=== PATIENT | male | born 1965 | race Caucasian/White ===

== ENCOUNTER → 2018-03-04 | Outpatient (CLI) | payer BC ==
[2018-02-04 01:45] VITALS: BP 143/85
[~2018-03-04] MED LIST: FAMO20TA5 PO; REGADENOSON 0.4 MG/5 ML DISP.SYRIN. IV ONE
--- NOTE | 2018-03-04 11:52 | RAD ---
MR#: [id number] Date of Study: 03/04/2018 Ordering Physician: SID ACEVES, Referring Physician: GOPAL MONTIEL Tech: RT Meseret (R) (N) APPROVED REPORT Test Type: Pharmacological Stress Nurse/Tech: Annia Petit R.N. Test Indications: chest pain Cardiac History: Family history, Diabetes, Hypertension, former smoker Medications: See Electronic Medical Record Medical History: See Electronic Medical Record Resting ECG: NSR Resting Heart Rate: 65 bpm Resting Blood Pressure: 117/68mmHg Pretest Chest Pain: No chest pain Nurse/Tech Notes S1S2, lungs sound clear Consent: The procedure was explained to the patient in lay terms. Informed consent was witnessed. Baldev eout was entered into [employer]. History and Stress Test performed by Annia Petit R.N. Pharm. Details Pharmacologic stress testing was performed using 0.4mg per 5ml of regadenoson given intravenously ove r 7-10 seconds. Stress Symptoms No chest pain or symptoms. POST EXERCISE Reason for Termination: Infusion complete Max HR: 85 bpm Max Blood Pressure: 120/65mmHg Blood Pressure response to exercise: Normal blood pressure response during stress. Chest Pain: No. Arrhythmia: No. ST Change: No. INTERPRETATION Stress EKG Conclusion: No acute changes. Imaging Protocol IMAGE PROTOCOL: Rest Tc-99m/stress Tc-99m 1 day Rest: Stress: Viability: Radiopharm.Tc99m [id number] Sestamibi Dose11.2mCi 32mCi Duration 13min. 13min. Img Date 03/04/2018 03/04/2018 Inj-Img [id number]. 60min. Rest Admin Site:IV - Right HandAdministrator:RT Meseret (R)(N) Stress Admin Site: IV - Right HandAdministrator: STEPHANIE Rodriguez, ARRT (R)(N) STRESS DATA End Diast. Vol.101.0mlLVEDV index BSA46.0ml End Syst. Vol.26.0mlLVESV index BSA12.0ml Myocardial Toxt376.0gEject. Mxhgsygc75.0% Stress Scores Regional WT0.00Summed WT0.00 Regional WM0.00Summed WM3.00 The rest and stress images show normal perfusion, normal contraction and thickening. LV Perf. Quant 17 Seg. SSS0.00 17 Seg. SRS2.00 17 Seg. SDS0.00 Stress Defect Extent (% LAD)0.00Rest Defect Extent (% LAD)0.00Rev. Defect Extent (% LAD)0.00 Stress Defect Extent (% LCX) 0.00Rest Defect Extent (% LCX)0.00Rev. Defect Extent (% LCX)0.00 Stress Defect Extent (% RCA)0.00Rest Defect Extent (% RCA)20.00Rev. Defect Extent (% RCA)0.00 Stress Defect Extent (% DAYAN)0.00Rest Defect Extent (% DAYAN)4.80Rev. Defect Extent (% DAYAN)0.00 Other Information Quality:Good Risk Assessment: Low Risk Conclusion 1. No evidence of EKG changes with stress testing. 2. Normal perfusion at stress/rest. 3. Low risk study. 4. EF > 60%. Signed by : Cal Francis, Electronically Approved : 03/04/2018 11:51:23
== END | disposition home or self-care (01) ==
LOC: NM 07:42
PROVIDERS: ATTEND Internal Medicine Cardiovascular Disease
DX: R07.89 Other chest pain (principal); I10 Essential (primary) hypertension; E11.9 Type 2 diabetes mellitus without complications; Z87.891 Personal history of nicotine dependence; Z82.49 Family history of ischemic heart disease and other diseases of the circulatory system; Z83.3 Family history of diabetes mellitus
CPT/HCPCS: 78452; 93017; 96374; 96375; 96376; A9500; J2785

== ENCOUNTER 2019-07-05 05:10 | Emergency (ER) | payer BC ==
[~2019-07-05] VITALS: Ht 177.8 cm; Wt 90.7 kg
[~2019-07-05 05:10] MED LIST changes: -REGADENOSON 0.4 MG/5 ML DISP.SYRIN. IV ONE
[2019-07-05] MEDS ORDERED: IV NORMAL SALINE 1000ML BAG 1,000 ML IV SCH ×2 (06:00→07:00)
[2019-07-05 06:27] LABS: CALCIUM 9.2 mg/dL (8.5-10.1); CREATININE 0.9 mg/dL (0.7-1.3); GFR 88.6; POTASSIUM 4.1 mmol/L (3.5-5.1)
[2019-07-05 06:32] LABS: ALBUMIN 4.4 g/dL (3.4-5.0); ALBUMIN/GLOBULIN RATIO 1.5 (1.0-1.7); TOTAL BILIRUBIN 0.9 mg/dL (0.2-1.0); TOTAL PROTEIN 7.4 g/dL (6.4-8.2)
--- NOTE | 2019-07-05 06:48 | PHYS DOC ---
Past Medical History Past Medical History: Diabetes-Type II, Hypertension Past Surgical History: No Surgical History Smoking Status: Never Smoker Alcohol Use: None Drug Use: None Social History Narrative: CHEWS Adult General Chief Complaint Chief Complaint: DIARRHEA HPI HPI Patient is a 53 year old male with history of hypertension and diabetes mellitus who presents with complaint of not feeling good and diarrhea. Patient complaining of 3-4 episodes of nonbloody diarrhea since yesterday afternoon with nausea and he states he does not feel good and feels weak. Patient complaining of mild cough without shortness of breath, fever and chills, abdominal pain, sick contact, urinary symptoms, chest pain and focal neuro deficit. Review of Systems Review of Systems Constitutional: Denies fever or chills [] Eyes: Denies change in visual acuity, redness, or eye pain [] HENT: Denies nasal congestion or sore throat [] Respiratory: Denies cough or shortness of breath [] Cardiovascular: No additional information not addressed in HPI [] GI: Denies abdominal pain, vomiting, bloody stools, reports nausea and diarrhea [] : Denies dysuria or hematuria [] Musculoskeletal: Denies back pain or joint pain [] Integument: Denies rash or skin lesions [] Neurologic: Denies headache, focal weakness or sensory changes [] Endocrine: Denies polyuria or polydipsia [] All other systems were reviewed and found to be within normal limits, except as documented in this note. Current Medications Current Medications Current Medications Medications (Trade) Dose Ordered Sig/Makenna Start Time Stop Time Status Last Admin Dose Admin Ondansetron HCl (Zofran) 4 mg 1X ONCE 07/05/19 07:00 07/05/19 07:01 DC 07/05/19 07:29 4 MG Sodium Chloride 1,000 ml @ 1,000 mls/hr Q1H 07/05/19 07:00 07/05/19 07:59 DC 07/05/19 07:29 1,000 MLS/HR Allergies Allergies Allergies Coded Allergies Type Severity Reaction Last Updated Verified No Known Drug Allergies 03/03/18 No Physical Exam Physical Exam Constitutional: Well developed, well nourished, mild distress, non-toxic appearance. [] HENT: Normocephalic, atraumatic, oral mucosa dry. Eyes: PERRLA, EOMI, conjunctiva normal, no discharge. [] Neck: Normal range of motion, no tenderness, supple, no stridor. [] Cardiovascular:Heart rate regular rhythm, no murmur [] Lungs & Thorax: Bilateral breath sounds clear to auscultation [] Abdomen: Bowel sounds normal, soft, no tenderness, no masses, no pulsatile masses. [] Skin: Warm, dry, no erythema, no rash. [] Back: No tenderness, no CVA tenderness. [] Extremities: No tenderness, no cyanosis, no clubbing, ROM intact, no edema. [] Neurologic: Alert and oriented X 3, no focal deficits noted. [] Psychologic: Affect anxious, judgement normal, mood normal. [] Current Patient Data Vital Signs Vital Signs Date Time Temp Pulse Resp B/P (MAP) Pulse Ox O2 Delivery O2 Flow Rate FiO2 07/05/19 09:00 58 18 131/67 (88) 97 Room Air 07/05/19 05:24 97.4 97.4 Lab Values Laboratory Tests Test 07/05/19 05:30 07/05/19 06:00 07/05/19 08:25 White Blood Count 6.9 x10^3/uL (4.0-11.0) Red Blood Count 5.32 x10^6/uL (4.30-5.70) Hemoglobin 16.4 g/dL (13.0-17.5) Hematocrit 47.3 % (39.0-53.0) Mean Corpuscular Volume 89 fL (79-100) Mean Corpuscular Hemoglobin 31 pg (25-35) Mean Corpuscular Hemoglobin Concent 35 g/dL (31-37) Red Cell Distribution Width 13.0 % (11.5-14.5) Platelet Count 308 x10^3/uL (140-400) Neutrophils (%) (Auto) 54 % (31-73) Lymphocytes (%) (Auto) 34 % (24-48) Monocytes (%) (Auto) 8 % (0-9) Eosinophils (%) (Auto) 4 % (0-3) H Basophils (%) (Auto) 0 % (0-3) Neutrophils # (Auto) 3.7 x10^3/uL (1.8-7.7) Lymphocytes # (Auto) 2.3 x10^3/uL (1.0-4.8) Monocytes # (Auto) 0.6 x10^3/uL (0.0-1.1) Eosinophils # (Auto) 0.3 x10^3/uL (0.0-0.7) Basophils # (Auto) 0.0 x10^3/uL (0.0-0.2) Sodium Level 142 mmol/L (136-145) Potassium Level 4.1 mmol/L (3.5-5.1) Chloride Level 103 mmol/L (98-107) Carbon Dioxide Level 29 mmol/L (21-32) Anion Gap 10 (6-14) Blood Urea Nitrogen 10 mg/dL (8-26) Creatinine 0.9 mg/dL (0.7-1.3) Estimated GFR (Cockcroft-Gault) 88.6 BUN/Creatinine Ratio 11 (6-20) Glucose Level 120 mg/dL (70-99) H Calcium Level 9.2 mg/dL (8.5-10.1) Total Bilirubin 0.9 mg/dL (0.2-1.0) Aspartate Amino Transferase (AST) 27 U/L (15-37) Alanine Aminotransferase (ALT) 50 U/L (16-63) Alkaline Phosphatase 83 U/L (46-116) Total Protein 7.4 g/dL (6.4-8.2) Albumin 4.4 g/dL (3.4-5.0) Albumin/Globulin Ratio 1.5 (1.0-1.7) Lipase 138 U/L (73-393) Lactic Acid Level 1.3 mmol/L (0.4-2.0) Urine Collection Type Void Urine Color Yellow Urine Clarity Clear Urine pH 5.5 (<5.0-8.0) Urine Specific [place] 1.020 (1.000-1.030) Urine Protein Negative mg/dL (NEG-TRACE) Urine Glucose (UA) Negative mg/dL (NEG) Urine Ketones (Stick) Negative mg/dL (NEG) Urine Blood Negative (NEG) Urine Nitrite Negative (NEG) Urine Bilirubin Negative (NEG) Urine Urobilinogen Dipstick 1.0 mg/dL (0.2 mg/dL) Urine Leukocyte Esterase Negative (NEG) Urine RBC 0 /HPF (0-2) Urine WBC 1-4 /HPF (0-4) Urine Squamous Epithelial Cells Few /LPF Urine Bacteria 0 /HPF (0-FEW) Urine Hyaline Casts Few /HPF Urine Mucus Marked /LPF Laboratory Tests 07/05/19 05:30 Laboratory Tests 07/05/19 05:30 EKG EKG [] Radiology/Procedures Radiology/Procedures [] Course & Med Decision Making Course & Med Decision Making Pertinent Labs reviewed. (See chart for details) Evaluation of patient in ER showed 53-year-old male patient with complaining of 3-4 episodes of diarrhea since yesterday without vomiting. Patient had unremarkable physical exam and lab and treated with IV fluids and felt better. I've spoken with the patient and/or caregivers. I've explained the patient's condition, diagnosis and treatment plan based on information available to me at this time. I've answered the patient's and/or caregivers questions and addressed any concerns. The patient and/or caregivers have a good understanding the patient's diagnosis, condition and treatment plan as can be expected at this point. Vital signs have been stabilized. The patient's condition is stable for discharge from the emergency department. The patient will pursue further outpatient evaluation with her primary care provider or other designated consulting physician as outlined in the discharge instructions. Patient and/or caregivers are agreeable to this plan of care and follow-up instructions have been explained in detail. The patient and/or caregivers have received these instructions in written format and expressed understanding of these discharge instructions. The patient and her caregivers are aware that if any significant change in condition or worsening of symptoms should prompt him to immediately return to this of the closest emergency department. If an emergent department is not readily available I would encourage him to call 911. [place] Disclaimer Dragon Disclaimer This electronic medical record was generated, in whole or in part, using a voice recognition dictation system. Departure Departure Impression: Primary Impression: Acute gastroenteritis Additional Impression: History of diabetes mellitus Disposition: HOME, SELF-CARE Condition: IMPROVED Referrals: GIAN MEYERS (PCP) Patient Instructions: Diet for Diarrhea, Adult, Viral Gastroenteritis Additional Instructions: Drink plenty of liquids Follow-up with your primary care physician in 3-5 days Return to ER if not getting better Thank you for visiting [facility]. We appreciate you trusting us with your care. If any additional problems come up don't hesitate to return to visit us. Please follow up with your primary care provider so they can plan additional care if needed and know about the problem that you had. If symptoms worsen come back to the Emergency Department. Any concerning symptoms that start such as chest pain, shortness of air, weakness or numbness on one side of the body, running high fevers or any other concerning symptoms return to the ER. Scripts Ondansetron Hcl (ZOFRAN) 4 Mg Tablet 1 TAB PO PRN Q6-8HRS for nausea, #12 TAB Prov: BERNICE RAPP MD 07/05/19 Problem Qualifiers BERNICE RAPP MD Jul 05, 2019 06:48
[2019-07-05 07:00] LABS: BASO % 0 % (0-3); EOS # 0.3 x10^3/uL (0.0-0.7); EOS % 4 % (0-3); HEMATOCRIT 47.3 % (39.0-53.0); HEMOGLOBIN 16.4 g/dL (13.0-17.5); LYMPH # 2.3 x10^3/uL (1.0-4.8); LYMPH % 34 % (24-48); MEAN CORPUSCULAR HEMOGLOBIN 31 pg (25-35); MEAN CORPUSCULAR HGB CONC 35 g/dL (31-37); MEAN CORPUSCULAR VOLUME 89 fL (79-100); MONO # 0.6 x10^3/uL (0.0-1.1); MONO % 8 % (0-9); NEUT # 3.7 x10^3/uL (1.8-7.7); NEUT % 54 % (31-73); PLATELET COUNT 308 x10^3/uL (140-400); RED BLOOD COUNT 5.32 x10^6/uL (4.30-5.70); WHITE BLOOD COUNT 6.9 x10^3/uL (4.0-11.0)
[2019-07-05] MEDS ORDERED: ONDANSETRON PF 4 MG/2 ML VIAL. IVP ONE (07:00)
[2019-07-05] MEDS ORDERED: ONDA4TAB7 PO (08:01)
[2019-07-05 08:37] LABS: BILIRUBIN,URINE NEGATIVE (NEG); CLARITY,URINE CLEAR; COLOR,URINE YELLOW; NITRITE,URINE NEGATIVE (NEG); PH,URINE 5.5 (<5.0-8.0); PROTEIN,URINE NEGATIVE (NEG-TRACE)
[2019-07-05 08:51] LABS: BACTERIA,URINE 0 /HPF (0-FEW); HYALINE CASTS, URINE FEW /HPF; RBC,URINE 0 /HPF (0-2); SQUAMOUS EPITHELIAL CELL,UR FEW /LPF
[2019-07-05 09:00] VITALS: BP 131/67
== END 2019-07-05 09:29 | disposition home or self-care (01) ==
LOC: ER 05:10
DX: K52.9 Noninfective gastroenteritis and colitis, unspecified (principal); R11.0 Nausea; R05 Cough; E11.9 Type 2 diabetes mellitus without complications; I10 Essential (primary) hypertension
CPT/HCPCS: 36415; 80053; 81001; 83605; 83690; 85025; 96361; 96374; 99283; J2405; J7030

== ENCOUNTER 2019-10-22 22:08 | Observation (INO) | payer BC ==
[~2019-10-22] VITALS: Ht 177.8 cm; Wt 99.1 kg
[~2019-10-22 22:08] MED LIST changes: +ONDA4TAB7 PO
[2019-10-22 22:39] LABS: BASO # 0.1 x10^3/uL (0.0-0.2); BASO % 1 % (0-3); EOS # 0.2 x10^3/uL (0.0-0.7); EOS % 2 % (0-3); HEMATOCRIT 41.9 % (39.0-53.0); HEMOGLOBIN 15.2 g/dL (13.0-17.5); LYMPH # 2.5 x10^3/uL (1.0-4.8); LYMPH % 29 % (24-48); MEAN CORPUSCULAR HEMOGLOBIN 31 pg (25-35); MEAN CORPUSCULAR HGB CONC 36 g/dL (31-37); MEAN CORPUSCULAR VOLUME 87 fL (79-100); MONO # 0.5 x10^3/uL (0.0-1.1); MONO % 6 % (0-9); NEUT # 5.5 x10^3/uL (1.8-7.7); NEUT % 62 % (31-73); PLATELET COUNT 284 x10^3/uL (140-400); RED BLOOD COUNT 4.84 x10^6/uL (4.30-5.70); WHITE BLOOD COUNT 8.8 x10^3/uL (4.0-11.0)
--- NOTE | 2019-10-22 22:41 | PHYS DOC ---
Past Medical History Past Medical History: Asthma, Diabetes-Type II, Hypertension Past Surgical History: Appendectomy, Other Additional Past Surgical Histo: L KNEE SX Smoking Status: Former Smoker Alcohol Use: Rarely Drug Use: None General Adult EDM: Chief Complaint: CHEST PAIN HPI: HPI: Patient is a 54 year old male with past medical history hypertension hyperlipidemia and diabetes presents with a chief complaint of chest pain. 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 Patient states pain was in his left chest that radiated to his left shoulder. He describes the pain as a stabbing-like pain. Patient had associated symptoms of diaphoresis and nausea. He states it lasted for about 20 minutes then resolved. Approximately 1 hour prior to arrival patient had a return of left-sided chest discomfort. Patient again described the pain as a stabbing pain and states he feels a little nauseous. Patient states pain is still present. Review of Systems: Review of Systems: Constitutional: Denies fever or chills. [] Eyes: Denies change in visual acuity. [] HENT: Denies nasal congestion or sore throat. [] Respiratory: Denies cough or shortness of breath. [] Cardiovascular: Positive chest pain GI: Denies abdominal pain, vomiting, bloody stools or diarrhea. [Positive nausea] : Denies dysuria. [] Musculoskeletal: Denies back pain or joint pain. [] Integument: Denies rash. [] Neurologic: Denies headache, focal weakness or sensory changes. [] Endocrine: Denies polyuria or polydipsia. [] Lymphatic: Denies swollen glands. [] Psychiatric: Denies depression or anxiety. [] Heart Score: HEART Score for Chest Pain: HEART Score for Chest Pain Response (Comments) Value History Moderately Suspicious 1 ECG Nonspecific Repolarizatio 1 Age >45 - < 65 1 Risk Factors >3 Risk Factors or Hx CAD 2 Troponin < Normal Limit 0 Total 5 Risk Factors: Risk Factors: DM, Current or recent (<one month) smoker, HTN, HLP, family history of CAD, obesity. Risk Scores: Score 0 - 3: 2.5% MACE over next 6 weeks - Discharge Home Score 4 - 6: 20.3% MACE over next 6 weeks - Admit for Clinical Observation Score 7 - 10: 72.7% MACE over next 6 weeks - Early Invasive Strategies Allergies: Allergies: Allergies Coded Allergies Type Severity Reaction Last Updated Verified No Known Drug Allergies 03/03/18 No Physical Exam: PE: Constitutional: Well developed, well nourished, no acute distress, non-toxic appearance. [] HENT: Normocephalic, atraumatic, bilateral external ears normal, oropharynx moist, no oral exudates, nose normal. [] Eyes: PERRLA, EOMI, conjunctiva normal, no discharge. [] Neck: Normal range of motion, no tenderness, supple, no stridor. [] Cardiovascular:Heart rate regular rhythm, no murmur [] Lungs & Thorax: Bilateral breath sounds clear to auscultation [] Abdomen: Bowel sounds normal, soft, no tenderness, no masses, no pulsatile masses. [] Skin: Warm, dry, no erythema, no rash. [] Back: No tenderness, no CVA tenderness. [] Extremities: No tenderness, no cyanosis, no clubbing, ROM intact, no edema. [] Neurologic: Alert and oriented X 3, normal motor function, normal sensory function, no focal deficits noted. [] Psychologic: Affect normal, judgement normal, mood normal. [] Current Patient Data: Vital Signs: Vital Signs Date Time Temp Pulse Resp B/P (MAP) Pulse Ox O2 Delivery O2 Flow Rate FiO2 10/22/19 22:12 97.7 69 18 168/93 (118) 96 Room Air 97.7 EKG: EKG: [] EKG time 221 heart rate [address] elevation no ST depression T wave inversion V5 V6 Radiology/Procedures: Radiology/Procedures: [] Impression: CHEST AP ONLY INDICATION: Reason: chest pain / Spl. Instructions: / History: . COMPARISON STUDY: None. FINDINGS: Lungs: Normal lung volume. No pulmonary mass or consolidation. The tracheobronchial tree and hilar structures are normal. Pleura: No pleural effusion or pneumothorax. Heart and Mediastinum: The cardiomediastinal silhouette is normal. The great vessels of the thorax are normal. IMPRESSION: No acute cardiopulmonary process. Electronically signed by: Miller Mares MD (10/22/2019 11:18 PM) [facility] Course & Med Decision Making: Course & Med Decision Making Pertinent Labs and Imaging studies reviewed. (See chart for details) []2217hrs rate [address] elevation no ST depression T wave changes V5 V6 Patient was evaluated for chief complaint. Work-up consisted of laboratory analysis radiologic imaging and EKG. Results reviewed and discussed with patient. Patient was treated with aspirin and nitro. Patient's symptoms did improve post treatment. Patient was admitted to the hospitalist for further evaluation and treatment. Dragon Disclaimer: Dragon Disclaimer: This electronic medical record was generated, in whole or in part, using a voice recognition dictation system. Departure Departure Impression: Primary Impression: Chest pain Disposition: ADMITTED INPATIENT Admitting Physician: JENNY Condition: STABLE Referrals: GIAN MEYERS (PCP) Justicifation of Admission Dx: Justifications for Admission: Justification of Admission Dx: Yes Comments: Chest Pain ETHEL NUNEZ I DO Oct 22, 2019 22:41
[2019-10-22 22:43] LABS: GFR 78.2; POTASSIUM 3.4 mmol/L (3.5-5.1)
[2019-10-22] MEDS ORDERED: NITROGLYCERIN SUBLINGUAL 0.4 MG BOTTLE OF 25. SL PRN (22:45)
[2019-10-22] MEDS ORDERED: ASPIRIN CHEWABLE 81 MG TABLET. PO ONE (22:45)
[2019-10-22 22:49] LABS: ALBUMIN/GLOBULIN RATIO 1.2 (1.0-1.7); TOTAL BILIRUBIN 0.5 mg/dL (0.2-1.0); TOTAL PROTEIN 7.3 g/dL (6.4-8.2)
[2019-10-22 22:59] LABS: PLT ESTIMATE ADEQUATE (ADEQUATE)
--- NOTE | 2019-10-22 23:20 | RAD ---
CHEST AP ONLY INDICATION: Reason: chest pain / Spl. Instructions: / History: . COMPARISON STUDY: None. FINDINGS: Lungs: Normal lung volume. No pulmonary mass or consolidation. The tracheobronchial tree and hilar structures are normal. Pleura: No pleural effusion or pneumothorax. Heart and Mediastinum: The cardiomediastinal silhouette is normal. The great vessels of the thorax are normal. IMPRESSION: No acute cardiopulmonary process. Electronically signed by: Miller Mares MD (10/22/2019 11:18 PM) [facility]
[2019-10-23] MEDS ORDERED: LISI1TAB23 PO (10:35)
[2019-10-23] MEDS ORDERED: METF500T16 PO (10:35)
[2019-10-23 10:52] LABS: BASO # 0.1 x10^3/uL (0.0-0.2); BASO % 1 % (0-3); EOS # 0.2 x10^3/uL (0.0-0.7); EOS % 3 % (0-3); HEMATOCRIT 41.7 % (39.0-53.0); HEMOGLOBIN 14.9 g/dL (13.0-17.5); LYMPH % 31 % (24-48); MEAN CORPUSCULAR HEMOGLOBIN 31 pg (25-35); MEAN CORPUSCULAR HGB CONC 36 g/dL (31-37); MEAN CORPUSCULAR VOLUME 86 fL (79-100); MONO # 0.4 x10^3/uL (0.0-1.1); MONO % 6 % (0-9); NEUT % 60 % (31-73); PLATELET COUNT 268 x10^3/uL (140-400); RED BLOOD COUNT 4.84 x10^6/uL (4.30-5.70); RED CELL DISTRIBUTION WIDTH 13.2 % (11.5-14.5); WHITE BLOOD COUNT 6.6 x10^3/uL (4.0-11.0)
[2019-10-23] MEDS ORDERED: ASPIRIN ENTERIC COATED 325 MG TABLET.DR. PO SCH (11:00)
[2019-10-23 11:13] LABS: ALBUMIN 3.9 g/dL (3.4-5.0); ALBUMIN/GLOBULIN RATIO 1.3 (1.0-1.7); CALCIUM 8.5 mg/dL (8.5-10.1); CREATININE 0.8 mg/dL (0.7-1.3); GFR 101.1; TOTAL BILIRUBIN 0.9 mg/dL (0.2-1.0); TOTAL PROTEIN 6.8 g/dL (6.4-8.2)
[2019-10-23 11:23] LABS: CHOLESTEROL/HDL RATIO 6.5
[2019-10-23] MEDS ORDERED: PANTOPRAZOLE 40 MG TABLET.DR. PO SCH (11:30)
[2019-10-23 11:49] VITALS: BP 124/65
[2019-10-23 15:00] VITALS: BP 137/76
[2019-10-23] MEDS ORDERED: ASPI325T11 PO (16:48)
[2019-10-23] MEDS ORDERED: ATOR20TA58 PO (16:48)
[2019-10-23] MEDS ORDERED: metFORMIN 500 MG TABLET PO SCH (17:00)
--- NOTE | 2019-10-23 17:45 | NUR ---
Pt discharged home with sister. Instructed to follow up with Dr Francis on outpatient and his office will call pt. Pt verbalized understanding.
--- NOTE | 2019-10-23 19:22 | PDOC ---
GENERAL General: Same day summary [id number] VITAL SIGNS Vital Signs/I&O: Vital Signs Date Time Temp Pulse Resp B/P (MAP) Pulse Ox O2 Delivery O2 Flow Rate FiO2 10/23/19 15:00 98.0 54 16 137/76 (96) 95 Room Air 98.0 ALLERGIES Allergies: Allergies Coded Allergies Type Severity Reaction Last Updated Verified No Known Drug Allergies 03/03/18 No MEDS Medications: Current Medications Medications (Trade) Dose Ordered Sig/Makenna Route PRN Reason Start Time Stop Time Status Last Admin Dose Admin Aspirin (Aspirin Chewable) 324 mg 1X ONCE PO 10/22/19 22:45 10/22/19 22:46 DC 10/22/19 22:50 Nitroglycerin (Nitrostat) 0.4 mg PRN Q5MIN PRN SL CHEST PAIN 10/22/19 22:45 10/23/19 18:14 DC 10/23/19 02:40 Aspirin (Ecotrin) 325 mg DAILYWBKFT PO 10/23/19 11:00 10/23/19 18:14 DC 10/23/19 12:33 Pantoprazole Sodium (Protonix) 40 mg BIDAC PO 10/23/19 11:30 10/23/19 18:14 DC 10/23/19 12:33 LAB Lab: Laboratory Tests Test 10/22/19 22:23 10/23/19 10:40 White Blood Count 8.8 x10^3/uL (4.0-11.0) 6.6 x10^3/uL (4.0-11.0) Red Blood Count 4.84 x10^6/uL (4.30-5.70) 4.84 x10^6/uL (4.30-5.70) Hemoglobin 15.2 g/dL (13.0-17.5) 14.9 g/dL (13.0-17.5) Hematocrit 41.9 % (39.0-53.0) 41.7 % (39.0-53.0) Mean Corpuscular Volume 87 fL (79-100) 86 fL (79-100) Mean Corpuscular Hemoglobin 31 pg (25-35) 31 pg (25-35) Mean Corpuscular Hemoglobin Concent 36 g/dL (31-37) 36 g/dL (31-37) Red Cell Distribution Width 13.0 % (11.5-14.5) 13.2 % (11.5-14.5) Platelet Count 284 x10^3/uL (140-400) 268 x10^3/uL (140-400) Neutrophils (%) (Auto) 62 % (31-73) 60 % (31-73) Lymphocytes (%) (Auto) 29 % (24-48) 31 % (24-48) Monocytes (%) (Auto) 6 % (0-9) 6 % (0-9) Eosinophils (%) (Auto) 2 % (0-3) 3 % (0-3) Basophils (%) (Auto) 1 % (0-3) 1 % (0-3) Neutrophils # (Auto) 5.5 x10^3/uL (1.8-7.7) 4.0 x10^3/uL (1.8-7.7) Lymphocytes # (Auto) 2.5 x10^3/uL (1.0-4.8) 2.0 x10^3/uL (1.0-4.8) Monocytes # (Auto) 0.5 x10^3/uL (0.0-1.1) 0.4 x10^3/uL (0.0-1.1) Eosinophils # (Auto) 0.2 x10^3/uL (0.0-0.7) 0.2 x10^3/uL (0.0-0.7) Basophils # (Auto) 0.1 x10^3/uL (0.0-0.2) 0.1 x10^3/uL (0.0-0.2) Platelet Estimate Adequate (ADEQUATE) Sodium Level 140 mmol/L (136-145) 140 mmol/L (136-145) Potassium Level 3.4 mmol/L (3.5-5.1) L 4.0 mmol/L (3.5-5.1) Chloride Level 104 mmol/L (98-107) 104 mmol/L (98-107) Carbon Dioxide Level 27 mmol/L (21-32) 26 mmol/L (21-32) Anion Gap 9 (6-14) 10 (6-14) Blood Urea Nitrogen 16 mg/dL (8-26) 16 mg/dL (8-26) Creatinine 1.0 mg/dL (0.7-1.3) 0.8 mg/dL (0.7-1.3) Estimated GFR (Cockcroft-Gault) 78.2 101.1 BUN/Creatinine Ratio 16 (6-20) 20 (6-20) Glucose Level 159 mg/dL (70-99) H 107 mg/dL (70-99) H Calcium Level 9.0 mg/dL (8.5-10.1) 8.5 mg/dL (8.5-10.1) Total Bilirubin 0.5 mg/dL (0.2-1.0) 0.9 mg/dL (0.2-1.0) Aspartate Amino Transferase (AST) 26 U/L (15-37) 28 U/L (15-37) Alanine Aminotransferase (ALT) 43 U/L (16-63) 43 U/L (16-63) Alkaline Phosphatase 78 U/L (46-116) 70 U/L (46-116) Creatine Kinase 139 U/L (39-308) Creatine Kinase MB (Mass) 1.3 ng/mL (0.0-3.6) Creatine Kinase MB Relative Index 0.9 % (0-4) Troponin I Quantitative < 0.017 ng/mL (0.000-0.055) < 0.017 ng/mL (0.000-0.055) Total Protein 7.3 g/dL (6.4-8.2) 6.8 g/dL (6.4-8.2) Albumin 4.0 g/dL (3.4-5.0) 3.9 g/dL (3.4-5.0) Albumin/Globulin Ratio 1.2 (1.0-1.7) 1.3 (1.0-1.7) Triglycerides Level 97 mg/dL (0-150) Cholesterol Level 213 mg/dL (0-200) H LDL Cholesterol, Calculated 161 mg/dL (0-100) H VLDL Cholesterol, Calculated 19 mg/dL (0-40) Non-HDL Cholesterol Calculated 180 mg/dL (0-129) H HDL Cholesterol 33 mg/dL (40-60) L Cholesterol/HDL Ratio 6.5 Laboratory Tests 10/22/19 22:23 10/23/19 10:40 Laboratory Tests 10/22/19 22:23 10/23/19 10:40 Justicifation of Admission Dx: Justifications for Admission: Justification of Admission Dx: Yes JOE HERRMANN MD Oct 23, 2019 19:22
--- NOTE | 2019-10-23 19:49 | SSS ---
ADMIT DATE: 10/23/2019 HISTORY OF PRESENT ILLNESS: This patient is a 54-year-old man who is a continuity outpatient of Dr. Albrecht at [facility]. The patient presented to the Emergency Department early this morning with sharp substernal chest pain that radiated around into his left shoulder. 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 He did not have a specific trauma, but the heavy loads have been a strain for him. The patient was concerned that he was having acute coronary syndrome and was admitted to an observation status for further evaluation and treatment. I saw him several hours ago after his Cardiology consultation in the company of his sister and he was feeling a lot better after analgesics. He was up and moving about the room and had tolerated his diet. He was cleared by Cardiology for outpatient followup. Cardiology notes are pending, but per nursing staff, he was told that likely he will need an outpatient stress test. The patient denied any shortness of air, palpitations, fever, chills, cough, congestion, nausea, vomiting, or change in his bowel habits. All other systems are reviewed and negative. PAST MEDICAL HISTORY: 1. Hypertension. 2. Diabetes that he believes has been in decent control, but he struggles with the cost of his medications at times. 3. Hyperlipidemia. MEDICATIONS: Please see the medication reconciliation form. SOCIAL HISTORY: The patient is single. He lives independently in his own home. He denies any tobacco, alcohol or illicit drugs. 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 FAMILY HISTORY: Reviewed in full and noncontributory to the present illness. PHYSICAL EXAMINATION: VITAL SIGNS: Reviewed since admission and are notable for that the patient was afebrile. Blood pressure was in the 120s to 130s/70s, heart rate is in the 40s-50s and regular. He is breathing comfortably and saturating normally on room air. GENERAL: The patient is a pleasant 54-year-old man, alert and oriented x 3, in no acute distress. HEENT: Unremarkable. NECK: Soft and supple. No adenopathy or thyromegaly noted. CHEST: Clear to auscultation. HEART: S1, S2 normal. Regular rate and rhythm. No murmurs or gallops are noted. ABDOMEN: Soft, nontender, nondistended. No masses or organomegaly noted. EXTREMITIES: Unremarkable for acute abnormality. LABORATORY DATA: Another studies reviewed and notable for a white count of 6.6, hemoglobin is 14.9, platelet count is 268. Chemistry panel is notable for a creatinine of 0.8. Electrolytes unremarkable. Liver function tests are normal. Troponin negative x 2. Fasting cholesterol demonstrates an LDL of 161. A1c was not taken. Chest x-ray is clear. EKG is not available electronically for review, but reportedly unremarkable. ASSESSMENT AND PLAN: The patient is a 54-year-old man admitted with substernal, sharp, respirophasic chest pain after a long day lifting heavy pallets at work, admitted for further evaluation and treatment. I agree with Cardiology that he was able to be discharged, which he did several hours ago. He will have close outpatient followup with primary care as well as Cardiology for further assessment. I have asked the patient to continue enteric coated aspirin as well as added atorvastatin to his regimen. He is adamant that this does not represent gastroesophageal reflux disease; however, he would benefit from short course of proton pump inhibitor to ensure that he is able to stay symptom free. He will avoid Motrin as that has exacerbated reflux in the past. Observation status is most appropriate as he was anticipated to only require one overnight stay depending on his progress. FINAL DIAGNOSES: Atypical chest pain, most likely musculoskeletal in origin. JOE HERRMANN MD DR: MELIZA/alexia JOB#: [id number] / [id number] GIAN Stewart Dr. MTDD
[2019-10-23] MEDS ORDERED: FAMOTIDINE 20 MG TABLET. PO SCH (21:00)
[2019-10-24 05:42] LABS: HEMOGLOBIN A1C 5.5 % (4.8-5.6)
--- NOTE | 2019-10-24 08:41 | PDOC2 ---
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 he reports left sided chest pain. Denies any syncope, palpitations. Pain occurred while moving heavy pallets. Since admission to hospital no recurrence. He has some typical and atypical components. PMHX: HTN DM2. DLP SOCHX: No alcohol, tob or illicits. He works at [employer]. He is worried about losing his job. He states that if he does not get back to work on friday he will lose his job. He is adamant that he does not want to stay in hospital. FAMHX: +CAD CURRENT MEDS: Current Medications Medications (Trade) Dose Ordered Sig/Makenna Route PRN Reason Start Time Stop Time Status Last Admin Dose Admin Aspirin (Ecotrin) 325 mg DAILYWBKFT PO 10/23/19 11:00 10/23/19 18:14 DC 10/23/19 12:33 Pantoprazole Sodium (Protonix) 40 mg BIDAC PO 10/23/19 11:30 10/23/19 18:14 DC 10/23/19 12:33 ALLERGIES: Allergies Coded Allergies Type Severity Reaction Last Updated Verified No Known Drug Allergies 03/03/18 No ROS: Negative for 01/25 systems reviewed PHYSICAL EXAM: Vital Signs/I&O: Vital Signs Date Time Temp Pulse Resp B/P (MAP) Pulse Ox O2 Delivery O2 Flow Rate FiO2 10/23/19 15:00 98.0 54 16 137/76 (96) 95 Room Air 98.0 Physical Exam: GEN.: No apparent distress. Alert and oriented. HEENT: Head is normocephalic, atraumatic NECK: Supple. LUNGS: Clear to auscultation. HEART: RRR, S1, S2 present. Peripheral pulses intact ABDOMEN: Soft, nontender. Positive bowel sounds. EXTREMITIES: Without any cyanosis. NEUROLOGIC: Normal speech, normal tone PSYCHIATRIC: Normal affect, normal mood. SKIN: No ulcerations DIAGNOSTIC TESTING: Lab Laboratory Tests Test 10/23/19 10:40 White Blood Count 6.6 x10^3/uL (4.0-11.0) Red Blood Count 4.84 x10^6/uL (4.30-5.70) Hemoglobin 14.9 g/dL (13.0-17.5) Hematocrit 41.7 % (39.0-53.0) Mean Corpuscular Volume 86 fL (79-100) Mean Corpuscular Hemoglobin 31 pg (25-35) Mean Corpuscular Hemoglobin Concent 36 g/dL (31-37) Red Cell Distribution Width 13.2 % (11.5-14.5) Platelet Count 268 x10^3/uL (140-400) Neutrophils (%) (Auto) 60 % (31-73) Lymphocytes (%) (Auto) 31 % (24-48) Monocytes (%) (Auto) 6 % (0-9) Eosinophils (%) (Auto) 3 % (0-3) Basophils (%) (Auto) 1 % (0-3) Neutrophils # (Auto) 4.0 x10^3/uL (1.8-7.7) Lymphocytes # (Auto) 2.0 x10^3/uL (1.0-4.8) Monocytes # (Auto) 0.4 x10^3/uL (0.0-1.1) Eosinophils # (Auto) 0.2 x10^3/uL (0.0-0.7) Basophils # (Auto) 0.1 x10^3/uL (0.0-0.2) Sodium Level 140 mmol/L (136-145) Potassium Level 4.0 mmol/L (3.5-5.1) Chloride Level 104 mmol/L (98-107) Carbon Dioxide Level 26 mmol/L (21-32) Anion Gap 10 (6-14) Blood Urea Nitrogen 16 mg/dL (8-26) Creatinine 0.8 mg/dL (0.7-1.3) Estimated GFR (Cockcroft-Gault) 101.1 BUN/Creatinine Ratio 20 (6-20) Glucose Level 107 mg/dL (70-99) H Hemoglobin A1c 5.5 % (4.8-5.6) Calcium Level 8.5 mg/dL (8.5-10.1) Total Bilirubin 0.9 mg/dL (0.2-1.0) Aspartate Amino Transf (AST/SGOT) 28 U/L (15-37) Alkaline Phosphatase 70 U/L (46-116) Total Protein 6.8 g/dL (6.4-8.2) Albumin 3.9 g/dL (3.4-5.0) Albumin/Globulin Ratio 1.3 (1.0-1.7) Cholesterol Level 213 mg/dL (0-200) H LDL Cholesterol, Calculated 161 mg/dL (0-100) H VLDL Cholesterol, Calculated 19 mg/dL (0-40) Non-HDL Cholesterol Calculated 180 mg/dL (0-129) H Cholesterol/HDL Ratio 6.5 Laboratory Tests 10/23/19 10:40 ASSESSMENT: 1. Atypical chest pain - currently resolved. EKG and trop negative. PLAN: 1. Plan for outpt stress testing. Supportive care. Given his social situation, will plan for stress on an outpt basis. Thanks BENOIT ARIZMENDI MD Oct 24, 2019 08:41
--- NOTE | 2019-11-02 05:12 | EKG ---
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
== END 2019-10-23 17:45 | disposition home or self-care (01) ==
LOC: ER 22:08 → 6 SOUTH 10-23 03:30 → ER 10-23 07:23
PROVIDERS: ADMIT Internal Medicine; ATTEND Internal Medicine
DX: R07.2 Precordial pain (principal); J45.909 Unspecified asthma, uncomplicated; E11.9 Type 2 diabetes mellitus without complications; E78.5 Hyperlipidemia, unspecified; I10 Essential (primary) hypertension; Z87.891 Personal history of nicotine dependence; Z90.49 Acquired absence of other specified parts of digestive tract
CPT/HCPCS: 36415; 71045; 80053; 80061; 82553; 83036; 84484; 85025; G0378; G0379; 93005; 99285-25

== ENCOUNTER 2021-03-17 05:00 | Emergency (ER) | payer BC ==
[~2021-03-17] VITALS: Ht 177.8 cm; Wt 97.7 kg
[~2021-03-17 05:00] MED LIST changes: +ASPI325T11 PO; +ATOR20TA58 PO; +LISI1TAB35 PO; +METF500T16 PO
[2021-03-17 05:30] VITALS: BP 124/84
--- NOTE | 2021-03-17 05:47 | RAD ---
EXAM: XR EXAM OF ANKLE_RIGHT 3VIEWS 03/17/2021 5:32 AM CLINICAL INDICATION: Pain, injury COMPARISON: None TECHNIQUE: 3 views of the right ankle FINDINGS: No acute fracture. Alignment is normal. The ankle mortise is symmetric and talar dome is i ntact. Prominent calcaneal enthesophytes There is soft tissue swelling laterally. IMPRESSION: No acute osseous abnormality. Lateral soft tissue swelling. Electronically signed by: Kaylynn Escalante MD (03/17/2021 5:44 AM) [facility]
[2021-03-17] MEDS ORDERED: ACETAMINOPHEN 500 MG TABLET PO ONE (06:00)
--- NOTE | 2021-03-17 06:14 | PHYS DOC ---
Past Medical History Past Medical History: Asthma, Diabetes-Type II, Hypertension Past Surgical History: Appendectomy, Other Additional Past Surgical Histo: L KNEE SX Smoking Status: Never Smoker Alcohol Use: None Drug Use: None Adult General Chief Complaint Chief Complaint: ANKLE PROBLEM HPI HPI 55-year-old gentleman who rolled his right ankle at work a day ago. Ambulatory with an antalgic gait since. Past medical history of hypertension and [id number] diabetes denies pain anywhere aside from to his ankle. Has been taking Tylenol without complete relief of symptoms. Review of Systems Review of Systems A twelve point review of systems was completed and was negative except where noted in HPI above. Current Medications Current Medications Current Medications Medications (Trade) Dose Ordered Sig/Makenna Start Time Stop Time Status Last Admin Dose Admin Acetaminophen (Tylenol) 500 mg 1X ONCE 03/17/21 06:00 03/17/21 06:01 DC 03/17/21 06:04 500 MG Allergies Allergies Allergies Coded Allergies Type Severity Reaction Last Updated Verified No Known Drug Allergies 03/03/18 No Physical Exam Physical Exam Constitutional: Well developed, well nourished, no acute distress, non-toxic appearance. [] HENT: Normocephalic, atraumatic, bilateral external ears normal, oropharynx moist, no oral exudates, nose normal. [] Eyes: PERRLA, EOMI, conjunctiva normal, no discharge. [] Neck: Normal range of motion, no tenderness, supple, no stridor. [] Cardiovascular:Heart rate regular rhythm, no murmur [] Lungs & Thorax: Bilateral breath sounds clear to auscultation [] Abdomen: Bowel sounds normal, soft, no tenderness, no masses, no pulsatile masses. [] Skin: Warm, dry, no erythema, no rash. [] Back: No tenderness, no CVA tenderness. [] Extremities: No tenderness, no cyanosis, no clubbing, ROM intact, no edema. [Mild right ankle swelling, to lateral malleolus greater than medial malleolus. Mild tenderness over the lateral malleolus. Full active and passive range of motion at the ankle and painless full active and passive range of motion at all the other joints of the right lower extremity.] Neurologic: Alert and oriented X 3, normal motor function, normal sensory function, no focal deficits noted. [] Psychologic: Affect normal, judgement normal, mood normal. [] Current Patient Data Vital Signs Vital Signs Date Time Temp Pulse Resp B/P (MAP) Pulse Ox O2 Delivery O2 Flow Rate FiO2 03/17/21 05:30 98.2 64 16 124/84 (97) 96 Room Air 98.2 EKG EKG [] Radiology/Procedures Radiology/Procedures [] Course & Med Decision Making Course & Med Decision Making Plain films of the ankle are negative for evidence of fracture or dislocation. Will treat as severe sprain with air splint, crutches, weightbearing as levon de dios and follow-up with primary care. Patient is to return to the emergency department right away if symptoms worsen or if other new symptoms of concern develop. All questions are answered. Dragon Disclaimer Dragon Disclaimer This electronic medical record was generated, in whole or in part, using a voice recognition dictation system. Departure Departure Impression: Primary Impression: Sprain of other ligament of right ankle, initial encounter Disposition: HOME / SELF CARE / HOMELESS Condition: GOOD Referrals: GIAN MEYERS (PCP) Patient Instructions: Ankle Sprain Additional Instructions: Follow-up very closely with your primary care doctor in the office in the next 2 to 4 days for a reevaluation of your symptoms and to discussion of next best steps in care. Rest, ice and elevate your ankle. Wear the air splint and use the crutches to stay off your ankle until it feels better. You may take a 500 mg extract Tylenol every 6 hours as needed for discomfort. Return to the emergency department right away for worsening symptoms of any kind or with any other new symptoms of concern. MARLIN ELLER MD Mar 17, 2021 06:14
== END 2021-03-17 06:35 | disposition home or self-care (01) ==
LOC: ER 05:00
DX: S93.401A Sprain of unspecified ligament of right ankle, initial encounter (principal); J45.909 Unspecified asthma, uncomplicated; E11.9 Type 2 diabetes mellitus without complications; I10 Essential (primary) hypertension; X50.9XXA Other and unspecified overexertion or strenuous movements or postures, initial encounter; Y93.89 Activity, other specified; Y92.89 Other specified places as the place of occurrence of the external cause; Y99.8 Other external cause status
CPT/HCPCS: 29515; 73610; 99283

== ENCOUNTER 2021-03-29 09:52 | Emergency (ER) | payer BC ==
[~2021-03-29] VITALS: Ht 180.3 cm; Wt 100.9 kg
[2021-03-29 10:05] VITALS: BP 203/67
--- NOTE | 2021-03-29 10:08 | ED.ADGEN ---
Past Medical History Past Medical History: Asthma, Diabetes-Type II, Hypertension Past Surgical History: Appendectomy, Other Additional Past Surgical Histo: L KNEE SX Smoking Status: Never Smoker Alcohol Use: None Drug Use: None General Adult EDM: Chief Complaint: PAIN ON URINATION HPI: HPI: Patient is a 55-year-old male who arrives ambulatory to the emergency department complaining of dysuria and hematuria. Patient reports for the past 3 weeks he has been observed blood in his urine with urination. Patient states he initially sees gross hematuria which eventually clears to a normal yellow color. Patient states when he does void he has what he describes as stinging. Patient states he believes the blood is causing his discomfort. Despite this, he denies any history of trauma. He further denies any history of the use of blood thinners and states he is not sexually active currently. He further denies any lesions or discharge. Additionally denies any fevers or abdominal pain. He is awake, alert and nontoxic-appearing. Review of Systems: Review of Systems: Constitutional: Denies fever or chills. [] Eyes: Denies change in visual acuity. [] HENT: Denies nasal congestion or sore throat. [] Respiratory: Denies cough or shortness of breath. [] Cardiovascular: Denies chest pain or edema. [] GI: Denies abdominal pain, nausea, vomiting, bloody stools or diarrhea. [] : Reports hematuria and dysuria. [] Musculoskeletal: Denies back pain or joint pain. [] Integument: Denies rash. [] Neurologic: Denies headache, focal weakness or sensory changes. [] Endocrine: Denies polyuria or polydipsia. [] Lymphatic: Denies swollen glands. [] Psychiatric: Denies depression or anxiety. [] Allergies: Allergies: Allergies Coded Allergies Type Severity Reaction Last Updated Verified No Known Drug Allergies 03/03/18 No Physical Exam: PE: Constitutional: Well developed, well nourished, no acute distress, non-toxic appearance. [] HENT: Normocephalic, atraumatic, bilateral external ears normal, oropharynx moist, no oral exudates, nose normal. [] Eyes: PERRLA, EOMI, conjunctiva normal, no discharge. [] Neck: Normal range of motion, no tenderness, supple, no stridor. [] Cardiovascular:Heart rate regular rhythm, no murmur [] Lungs & Thorax: Bilateral breath sounds clear to auscultation [] Abdomen: Bowel sounds normal, soft, no tenderness, no masses, no pulsatile masses. [] Skin: Warm, dry, no erythema, no rash. [] Back: No tenderness, no CVA tenderness. [] Extremities: No tenderness, no cyanosis, no clubbing, ROM intact, no edema. [] Neurologic: Alert and oriented X 3, normal motor function, normal sensory function, no focal deficits noted. [] Psychologic: Affect normal, judgement normal, mood normal. [] Current Patient Data: Labs: Laboratory Tests Test 03/29/21 10:00 Urine Collection Type Void Urine Color Yellow Urine Clarity Clear Urine pH 5.5 (<5.0-8.0) Urine Specific [place] 1.020 (1.000-1.030) Urine Protein Negative mg/dL (NEG-TRACE) Urine Glucose (UA) Negative mg/dL (NEG) Urine Ketones (Stick) Negative mg/dL (NEG) Urine Blood Large (NEG) Urine Nitrite Negative (NEG) Urine Bilirubin Negative (NEG) Urine Urobilinogen Dipstick 0.2 mg/dL (0.2 mg/dL) Urine Leukocyte Esterase Negative (NEG) Urine RBC 20-40 /HPF (0-2) Urine WBC 0 /HPF (0-4) Urine Transitional Epithelial Cells Few /LPF Urine Bacteria 0 /HPF (0-FEW) Urine Mucus Mod /LPF Vital Signs: Vital Signs Date Time Temp Pulse Resp B/P (MAP) Pulse Ox O2 Delivery O2 Flow Rate FiO2 03/29/21 10:05 97.5 67 18 203/67 (112) 96 Room Air 97.5 EKG: EKG: [] Heart Score: C/O Chest Pain: No Risk Factors: Risk Factors: DM, Current or recent (<one month) smoker, HTN, HLP, family history of CAD, obesity. Risk Scores: Score 0 - 3: 2.5% MACE over next 6 weeks - Discharge Home Score 4 - 6: 20.3% MACE over next 6 weeks - Admit for Clinical Observation Score 7 - 10: 72.7% MACE over next 6 weeks - Early Invasive Strategies Radiology/Procedures: Radiology/Procedures: [][facility] [address] [place] [address] IMAGING REPORT Signed PATIENT: RAMSES FUCHS JR LACCOUNT: [id number] : 1965 LOCATION: ER AGE: 55 SEX: M EXAM STATUS: REG ER ORD. PHYSICIAN: MAYRA CASTRO DO REASON: Suprapubic pain, hematuria PROCEDURE: PELVIS COMPLETE US PELVIS COMPLETE 03/29/2021 11:43 AM INDICATION: Suprapubic pain COMPARISON: None available. TECHNIQUE: Sonographic evaluation of the pelvis is performed utilizing transabdominal imaging. FINDINGS/ IMPRESSION: 1. Bladder is within normal limits. 2. No suspicious pelvic masses. Electronically signed by: Galina Muhammad MD (03/29/2021 1:09 PM) [id number] DICTATED and SIGNED BY: GALINA MUHAMMAD MD DATE: 03/29/21 [id number] Course & Med Decision Making: Course & Med Decision Making Pertinent Labs and Imaging studies reviewed. (See chart for details) I spoke with the patient with respect to his complaint and he does report to me that his pain is restricted to his pubic region. Patient also states that he often feels the need to urinate and gets up frequently in the middle night for this. I advised that he follow-up with his primary care physician for further evaluation into BPH and or possible prostate cancer. Ultrasonography here did not reveal any acute pathological process and his urinalysis was free from infection. Nonetheless I advised that he consider follow-up given that this could be a life-threatening condition. The patient understands and has agreed to do so. He is nontoxic-appearing and stable for discharge. Dragon Disclaimer: Lucy Disclaimer: This electronic medical record was generated, in whole or in part, using a voice recognition dictation system. Departure Departure Impression: Primary Impression: Hematuria Disposition: 01 HOME / SELF CARE / HOMELESS Condition: STABLE Referrals: GIAN MEYERS (PCP) Patient Instructions: Hematuria, Adult Scripts Tamsulosin Hcl (FLOMAX) 0.4 Mg Cap.er.24h 1 CAP PO DAILY for 14 Days, #14 CAP 0 Refills Prov: MAYRA CASTRO DO 03/29/21 MAYRA CASTRO DO Mar 29, 2021 10:08
[2021-03-29 11:20] LABS: BILIRUBIN,URINE NEGATIVE (NEG); CLARITY,URINE CLEAR; COLOR,URINE YELLOW; NITRITE,URINE NEGATIVE (NEG); PH,URINE 5.5 (<5.0-8.0); PROTEIN,URINE NEGATIVE (NEG-TRACE); UROBILINOGEN,URINE 0.2 mg/dL (0.2 mg/dL)
[2021-03-29 11:30] LABS: RBC,URINE 20-40 /HPF (0-2)
[2021-03-29 11:31] LABS: BACTERIA,URINE 0 /HPF (0-FEW); WBC,URINE 0 /HPF (0-4)
--- NOTE | 2021-03-29 13:11 | RAD ---
US PELVIS COMPLETE 03/29/2021 11:43 AM INDICATION: Suprapubic pain COMPARISON: None available. TECHNIQUE: Sonographic evaluation of the pelvis is performed utilizing transabdominal imaging. FINDINGS/ IMPRESSION: 1. Bladder is within normal limits. 2. No suspicious pelvic masses. Electronically signed by: Sheri Barahona MD (03/29/2021 1:09 PM) [id number]
[2021-03-29] MEDS ORDERED: TAMS0.4C97 PO (13:19)
== END 2021-03-29 13:37 | disposition home or self-care (01) ==
LOC: ER 09:52
DX: R31.9 Hematuria, unspecified (principal); R30.0 Dysuria; J45.909 Unspecified asthma, uncomplicated; E11.9 Type 2 diabetes mellitus without complications; I10 Essential (primary) hypertension; Z90.89 Acquired absence of other organs
CPT/HCPCS: 76856; 81001; 99284